=== PATIENT | female | born 1995 | race Caucasian/White ===

== ENCOUNTER 2023-08-21 04:55 | Inpatient (IN) | payer OTHER ==
[2023-08-21] MEDS ORDERED: CITRIC ACID/SODIUM CITRATE 30 ML UNIT-DOSE CUP PO ONE (05:30)
[2023-08-21] MEDS ORDERED: ELECTROLYTE-148 SOLN 500 ML IV ONE (05:30)
[2023-08-21 05:41] VITALS: BMI 29.9
[2023-08-21 05:50] LABS: COCAINE, UR NEGATIVE (NEGATIVE); METHADONE, UR NEGATIVE (NEGATIVE); OPIATES, URI NEGATIVE (NEGATIVE); PHENCYCLIDINE,URINE NEGATIVE (NEGATIVE); URINE BARBITURATES NEGATIVE (NEGATIVE); URINE BENZODIAZEPINES NEGATIVE (NEGATIVE)
[2023-08-21 05:57] LABS: URINE AMPHETAMINES NEGATIVE (NEGATIVE)
[2023-08-21] MEDS: ELECTROLYTE-148 SOLN 1,000 ML IV SCH ×2 (06:00→07:38)
[2023-08-21] MEDS ORDERED: FENTANYL CITRATE/PF 50 MCG/ML VIAL ONE (08:05)
[2023-08-21] MEDS ORDERED: morphine SULFATE/PF 1 MG/2 ML (2cc Syringe - QUVA) ONE (08:05)
[2023-08-21] MEDS ORDERED: PHENYLEPHRINE HCL 10 MG/1 ML SINGLE DOSE VIAL ONE (08:27)
[2023-08-21] MEDS ORDERED: ceFAZolin SODIUM 1 GM VIAL ONE (08:27)
[2023-08-21] MEDS ORDERED: KETOROLAC TROMETHAMINE 30 MG/1 ML VIAL ONE (08:27)
[2023-08-21] MEDS ORDERED: ONDANSETRON 4 MG/2 ML VIAL ONE ×2 (08:27→08:45)
[2023-08-21] MEDS ORDERED: DEXAMETHASONE SOD PHOSPHATE 4 MG/1 ML VIAL ONE (08:45)
[2023-08-21] MEDS ORDERED: OXYTOCIN 10 UNITS/ML VIAL ONE ×2 (08:48)
[2023-08-21] MEDS ORDERED: METHYLERGONOVINE MALEATE 0.2 MG/1 ML AMP IM PRN (09:06)
[2023-08-21] MEDS ORDERED: ACETAMINOPHEN 1000 MG/100 ML BAG IVPB PRN (09:08)
[2023-08-21] MEDS: OXYTOCIN 20 UNITS in 0.9% NS 20 UNIT/1,000 ML INFUS.BAG IV SCH ×2 (09:15→17:48)
[2023-08-21 09:23] LABS: CORD BASE EXCESS -5.4 mmol/L (0-2); CORD PCO2 38.7 mmHg (30-78); CORD pH 7.331 (7.14-7.44)
[2023-08-21] MEDS ORDERED: ONDANSETRON 4 MG/2 ML VIAL IVPUSH PRN (09:31)
[2023-08-21] MEDS ORDERED: morphine SULFATE/PF 1 MG/2 ML (2cc Syringe - QUVA) SPIN ONE (09:31)
[2023-08-21] MEDS ORDERED: ACETAMINOPHEN 1000 MG/100 ML BAG IVPB ONE (09:35)
[2023-08-21] MEDS: CEFAZOLIN SODIUM 2 GM in DEXTROSE 5%-WATER 100 ML IVPB SCH ×2 (16:24→23:45)
[2023-08-21] MEDS ORDERED: oxyCODONE HCL 5 MG TABLET PO PRN (21:07)
[2023-08-21] MEDS: IBUPROFEN 600 MG TABLET (FP) PO PRN (21:47)
[2023-08-21] MEDS: SIMETHICONE 80 MG TAB.CHEW (FP) PO PRN (21:47)
[2023-08-22] MEDS: IBUPROFEN 600 MG TABLET (FP) PO PRN ×3 (07:52→20:43)
[2023-08-22 08:06] LABS: BASO % 0.2 % (0-2.0); EOS % 0.4 % (0-4.5); HEMATOCRIT 29.8 % (32.4-45.2); HEMOGLOBIN 9.7 GM/dL (10.7-15.3); LYMPH % 19.2 % (8-40); MCHC 32.4 g/dl (32.0-36.0); MEAN CELL VOLUME 80.1 fl (80-96); MEAN PLT VOLUME 10.5 fl (7.5-11.1); MONO % 8.2 % (3.8-10.2); PLATELET COUNT 170 10^3/uL (134-434); RBC 3.72 M/mm3 (3.60-5.2); RDW 13.5 % (11.6-15.6); WHITE BLOOD COUNT 11.6 K/mm3 (4.0-10.0)
[2023-08-22] MEDS: CEFAZOLIN SODIUM 2 GM in DEXTROSE 5%-WATER 100 ML IVPB SCH (08:21)
[2023-08-22] MEDS ORDERED: ACETAMINOPHEN 325 MG TABLET (FP) PO PRN (09:00)
[2023-08-22] MEDS ORDERED: BISACODYL 10 MG SUPP.RECT RC PRN (09:07)
[2023-08-22] MEDS: ENOXAPARIN NA (PORCINE) 40 MG/0.4 ML DISP.SYRIN SQ SCH (09:21)
[2023-08-22] MEDS: OXYTOCIN 20 UNITS in 0.9% NS 20 UNIT/1,000 ML INFUS.BAG IV SCH (16:33)
[2023-08-22] MEDS: oxyCODONE HCL 5 MG TABLET PO PRN (17:18)
[2023-08-22] MEDS: SIMETHICONE 80 MG TAB.CHEW (FP) PO PRN (17:22)
[2023-08-23] MEDS: SIMETHICONE 80 MG TAB.CHEW (FP) PO PRN ×4 (01:05→21:06)
[2023-08-23] MEDS: IBUPROFEN 600 MG TABLET (FP) PO PRN ×4 (01:07→21:06)
[2023-08-23] MEDS: oxyCODONE HCL 5 MG TABLET PO PRN (04:43)
[2023-08-23] MEDS: ENOXAPARIN NA (PORCINE) 40 MG/0.4 ML DISP.SYRIN SQ SCH (09:30)
[2023-08-24] MEDS: IBUPROFEN 600 MG TABLET (FP) PO PRN (06:15)
[2023-08-24] MEDS: SIMETHICONE 80 MG TAB.CHEW (FP) PO PRN (06:15)
[2023-08-24 07:47] LABS: BASO % 0.2 % (0-2.0); EOS % 2.4 % (0-4.5); HEMOGLOBIN 9.6 GM/dL (10.7-15.3); LYMPH % 22.3 % (8-40); MCH 26.1 pg (25.7-33.7); MEAN CELL VOLUME 79.1 fl (80-96); MEAN PLT VOLUME 9.4 fl (7.5-11.1); MONO % 8.5 % (3.8-10.2); NEUT % 66.6 % (42.8-82.8); PLATELET COUNT 212 10^3/uL (134-434); RBC 3.66 M/mm3 (3.60-5.2); RDW 13.7 % (11.6-15.6); WHITE BLOOD COUNT 8.6 K/mm3 (4.0-10.0)
[2023-08-24] MEDS: oxyCODONE HCL 5 MG TABLET PO PRN (08:11)
[2023-08-24 10:43] VITALS: BP 108/63; PULSE 81; RESP 16; TEMP 98.5
[2023-08-24] MEDS: ENOXAPARIN NA (PORCINE) 40 MG/0.4 ML DISP.SYRIN SQ SCH (11:32)
== END 2023-08-24 13:35 | disposition home or self-care (01) | DRG 540 ==
LOC: JLDR 04:55 → J3W 11:05
PROVIDERS: ADMIT Obstetrics & Gynecology; ATTEND Obstetrics & Gynecology
PROC: 10D00Z1 Extraction of Products of Conception, Low, Open Approach (ICD-10-PCS; principal; 2023-08-21)
PROC: 0DNW0ZZ Release Peritoneum, Open Approach (ICD-10-PCS; 2023-08-21)
DX: O34.211 Maternal care for low transverse scar from previous cesarean delivery (principal); O99.62 Diseases of the digestive system complicating childbirth; K66.0 Peritoneal adhesions (postprocedural) (postinfection); Z3A.39 39 weeks gestation of pregnancy; Z37.0 Single live birth
CPT/HCPCS: 36415; 36600; 59025; 80307; 82803; 85025; 85461; 94010; 96372; J2790